=== PATIENT | female | born 1985 | race Caucasian/White ===

== ENCOUNTER 2024-07-03 12:00 | Emergency (ER) | payer OTHER, SELFPAY ==
--- NOTE | ~2024-07-03 | CT_ITS ---
CT scan of the Neck Technique: 2.5 mm axial scans were obtained through the neck after intravenous administration of 75 c c Omnipaque 350. Coronal and sagittal reconstructions of the neck were obtained. Dose reduction techn ique was used on this scan by utilizing automated exposure control and iterative reconstruction techn ique. The dose-length product (DLP) was 427.02 mGy-cm. Clinical History: Dysphagia Findings: There is mild bilateral cervical lymphadenopathy, predominantly level 2, nonspecific. Parapharyngeal spaces appear normal bilaterally. The parotid and submandibular glands appear normal. The pharyngeal mucosal spaces appear normal. No soft tissue masses are seen in the neck. The thyroid gland appears normal. Images of the lung apices reveal no abnormalities. Impression: Mild nonspecific bilateral cervical lymphadenopathy, most compatible with nonspecific lymphadenitis. Correlate clinically. Reviewed, dictated and finalized at [facility]. Impression: Mild nonspecific bilateral cervical lymphadenopathy, most compatible with nonsp ecific lymphadenitis. Correlate clinically.
[2024-07-03 12:00] VITALS: BP 140/85; PULSE 98; RESP 20; TEMP 37; O2SAT 99
[2024-07-03 12:13] VITALS: BP 140/85; PULSE 98; RESP 20; TEMP 37; O2SAT 99
--- NOTE | 2024-07-03 12:13 | ED.GENADULT ---
HPI - General Adult General Chief complaint: Upper Respiratory Infection Stated complaint: fever, sore throat Time Seen by Provider: 07/03/24 12:04 History of Present Illness HPI narrative: Karoline presented to the ED with a few days of sore throat that is getting worse. It started a few days ago and was followed by subjective fevers and body aches. She is struggling to eat and swallow pills because of the pain. Related Data Allergies Allergy/AdvReac Type Severity Reaction Status Date / Time No Known Allergies Allergy Verified 07/03/24 12:11 Review of Systems Review of Systems: All systems reviewed & are unremarkable except as noted in HPI and below Exam Const: General: cooperative, healthy appearing, comfortable, no acute distress, well developed, alert, awake and Physically active Orientation/consciousness: oriented to person, oriented to place and oriented to time HENMT: Head: normal to inspection, normocephalic and atraumatic Ears: hearing grossly normal bilaterally and external ears normal Face/Nose/Sinus: Normal external nose present Other: would not open mouth wide enough to visualize throat. Bilateral anterior cervical lymphadenopathy Eyes: General: appearance normal, both eyes and all related structures Periorbital: periorbital findings normal Sclera: sclerae normal Pupils: Equal, round and reactive pupils present Neck: Neck: normal visual inspection Chest: Chest palpation & inspection: normal inspection of the chest Resp: Effort & Inspection: normal respiratory effort, able to speak in complete sentences and no respiratory distress Auscultation: clear to auscultation bilaterally Cardio: Jugular venous distension: no JVD Rate: regular rate Rhythm: regular rhythm GI: Inspection: normal to inspection GI Palp: Yes Soft to palpation Auscultation: normal bowel sounds Skin: General skin exam: normal color and no rashes or lesions noted Neuro: General: oriented to person, oriented to place and oriented to time Cranial nerves: Yes Equal, round and reactive pupils present Extrem: General: normal to inspection Course Course Emergency Course: Ordered labs, CT, and toradol for pain. CT scan of the Neck Technique: 2.5 mm axial scans were obtained through the neck after intravenous administration of 75 cc Omnipaque 350. Coronal and sagittal reconstructions of the neck were obtained. Dose reduction technique was used on this scan by utilizing automated exposure control and iterative reconstruction technique. The dose-length product (DLP) was 427.02 mGy-cm. Clinical History: Dysphagia Findings: There is mild bilateral cervical lymphadenopathy, predominantly level 2, nonspecific. Parapharyngeal spaces appear normal bilaterally. The parotid and submandibular glands appear normal. The pharyngeal mucosal spaces appear normal. No soft tissue masses are seen in the neck. The thyroid gland appears normal. Images of the lung apices reveal no abnormalities. Impression: Mild nonspecific bilateral cervical lymphadenopathy, most compatible with nonspecific lymphadenitis. Correlate clinically. Labs showed leukocytosis, elevated CRP and was positive for Strep. She was given dexamethasone and a dose of amoxicillin Vital Signs Vital signs: Vital Signs Temperature 98.6 F 07/03/24 12:00 Pulse Rate 98 07/03/24 12:00 Respiratory Rate 20 07/03/24 12:00 Blood Pressure 140/85 07/03/24 12:00 Pulse Oximetry 99 07/03/24 12:00 Oxygen Delivery Room Air 07/03/24 12:00 Temperature 98.6 F 07/03/24 12:13 Pulse Rate 98 07/03/24 12:13 Respiratory Rate 20 07/03/24 12:13 Blood Pressure 140/85 07/03/24 12:13 Pulse Oximetry 99 07/03/24 12:13 Oxygen Delivery Room Air 07/03/24 12:13 Medical Decision Making Vital Signs Vital Signs: Vital Signs Temperature 98.6 F 07/03/24 12:00 Pulse Rate 98 07/03/24 12:00 Respiratory Rate 20 07/03/24 12:00 Blood Pressure 140/85
[2024-07-03] MEDS: KETOROLAC 15 MG/ML VIAL (*BKC) IV PUSH ×2 (12:28→13:54)
[2024-07-03 12:37] LABS: Basophils Absolute Auto 0.04 K/mm3 (0.00-0.10); Basophils Percent Auto 0.3 % (0.0-1.0); Eosinophils Absolute Auto 0.07 K/mm3 (0.02-0.50); Eosinophils Percent Auto 0.5 % (1.0-6.0); Hematocrit 42.4 % (35.0-49.0); Hemoglobin 14.8 g/dL (12.0-15.0); Immature Granulocyte Absolute 0.07 K/mm3 (0.00-0.00); Immature Granulocyte Percent A 0.5 % (0.0-0.0); Lymphocytes Absolute Auto 0.93 K/mm3 (1.10-4.50); Lymphocytes Percent Auto 6.4 % (18.0-42.0); Mean Corpuscular HGB Conc 34.9 g/dL (32-36); Mean Corpuscular Hemoglobin 31.4 pg (27.0-31.0); Mean Platelet Volume 10.8 fl (9.2-11.8); Monocytes Percent Auto 5.5 % (2.0-11.0); Neutrophils Absolute Auto 12.62 K/mm3 (1.70-7.20); Neutrophils Percent Auto 86.8 % (50.0-70.0); Platelet Count Result 244 K/mm3 (150-420); Red Blood Count 4.71 M/mm3 (4.20-5.40); Red Cell Distribution Width 11.7 % (11.6-14.4); White Blood Count 14.5 K/mm3 (4.8-10.8)
[2024-07-03 12:48] LABS: Alanine Aminotransferase 25 U/L (14-59); Albumin Level 3.1 g/dL (3.4-5.0); Alkaline Phosphatase 123 U/L (46-116); Anion Gap 10 mmol/L (4-12); Aspartate Amino Transferase 15 U/L (15-37); Bilirubin,Total 0.5 mg/dL (0.00-1.00); Blood Urea Nitrogen 4 mg/dL (7-18); Calcium 8.7 mg/dL (8.5-10.1); Carbon Dioxide 26 mmol/L (21-32); Chloride 98 mmol/L (98-108); Estimated CRCL calculation 105 ml/min; Estimated Glomerular Filt Rate > 60; Glucose 103 mg/dL (70-99); Osmolality Calculated 274 mOsm/kg (285-295); Potassium 3.7 mmol/L (3.5-5.1); Sodium 134 mmol/L (136-145); Total Protein 7.2 g/dL (6.4-8.2)
[2024-07-03 13:15] LABS: Strep Group A RT-PCR DETECTED (Negative)
[2024-07-03 13:19] LABS: SARS-CoV-2 RNA PCR Negative (Negative)
[2024-07-03 13:33] LABS: Influenza A QL RT-PCR Negative (Negative); Influenza B QL RT-PCR Negative (Negative); RSV RNA, RT-PCR Negative (Negative)
[2024-07-03] MEDS: dexAMETHasone SOD PHOS INJ 10 MG/ML 1 ML VIAL IV PUSH (13:54)
[2024-07-03] MEDS: AMOXICILLIN/CLAVULANATE K 875-125 MG TAB 1 TABLET PO (13:54)
[2024-07-03 14:05] VITALS: BP 130/88; PULSE 96; RESP 20; TEMP 37; O2SAT 98
== END 2024-07-03 14:05 | disposition home or self-care (01) ==
PROVIDERS: Emergency Provider Family Medicine; PCP Family Medicine
DX: J02.0 Streptococcal pharyngitis (principal); Z20.822 Contact with and (suspected) exposure to COVID-19
CPT/HCPCS: 36415; 70491; 80053; 85025; 86140; 87637; 87651; 96374; 96375; 96376; 99284; A9270; J1100; J1885; Q9967

== ENCOUNTER 2025-08-26 10:59 | Emergency (ER) | payer OTHER, SELFPAY ==
--- NOTE | ~2025-08-26 | XR_ITS ---
Examination: XR ankle LT min 3V, XR tibia fibula LT 2V Clinical History: Fall, Lt. ankle pain/ limited ROM Comparison: None Technique: 2 views left tibia fibula 3 films, 3 views left ankle Findings/impression: Left tibia-fibula: 1. No fracture. Left ankle: 1. No fracture or dislocation. Reviewed, dictated and finalized at location R. [employer]
[2025-08-26 11:00] VITALS: BP 134/83; PULSE 82; RESP 20; TEMP 36.9; O2SAT 99
--- OUTSIDE RECORDS SUMMARY | 2025-08-26 11:02 | XMS_ITS | Clinical Summary ---
Author Organization [facility] Medical Office Building B Address [address] [place] [address] Care Team Providers Care Supervisor Throwing Department Name Role Phone Christian Marcos MD Primary Care Provider [phone]- [phone] Allergies Active Allergy Reactions Criticality Noted Date Comments Sumatriptan Palpitations,Chest tightness,Dizziness,Flushing (skin),Nausea only,Shortness of breath,Sweating High 08/23/2014 Medications baclofen (LIORESAL) 10 mg tablet Take 1 tablet by mouth daily 01/31/[address] (VOLTAREN) 75 mg EC tablet 12/31/2020 Active sertraline (ZOLOFT) 100 mg tablet Take 100 mg by mouth daily 12/31/2020 Active traZODone (DESYREL) 50 mg tablet TK 1/2 TO 1 T PO HS PRN FOR INSOMNIA 07/20/2019 Active valACYclovir (VALTREX) 500 mg tablet Take 1,000 mg by mouth 2 (two) times a day 12/04/2020 Active folic acid (FOLVITE) 1 mg tablet Take 1 tablet (1 mg total) by mouth daily 90 tablet 3 06/19/2021 Active leflunomide (ARAVA) 10 mg tabletIndicatio ns:Rheumatoid Arthritis Take 1 tablet (10 mg total) by mouth daily 30 tablet 2 07/09/2021 Active Active Problems No known active problems Medical History Medical History Date Comments Depression Family History Medical History Relation Name Comments Cancer Brother LYMPHOBLASTIC Arthritis Father Cancer Father PANCREATIC Fibromyalgia Father Rheum arthritis Father Cancer Maternal Grandmother OATS CE LL LUNG CANCER Arthritis Mother Crohn's disease Mother Rheum arthritis Mother Cancer Mother's Sister 1 OVARIAN Cancer Mother's Sister 2 LUNG CANCE R Heart disease Paternal Grandmother Breast cancer Sister Relation Name Status Comments Brother Father Maternal Grandfather Maternal Grandmother Mother Alive Mother's Sister 1 Mother's Sister 2 Paternal Grandmother Sister Social History Tobacco Use Types Packs/Day Years Used Date Smoking Tobacco: Never Smokeless Tobacco: Never Personal Safety Answer Date Recorded Getting School Help Needed Not on file 09/09 Comments Unknown Sex and Gender Information Value Date Recorded Sex Assigned at Not on file 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 Gender Identity Female 12/05/2020 3:34 AM CDT Sexual Orientation Bisexual 12/05/2020 3: 34 AM CDT Last Filed Vital Signs Vital Sign Reading Time Taken Comments Blood Pressure 143/83 06/19/2021 12:47 PM CDT Pulse 102 06/19/2021 12:47 PM CDT Temperature 36.7 C (98 F) 06/19/2021 12:47 PM CDT Respiratory Rate - - Oxygen Saturation 99% 01/29/2021 1:19 PM CDT Inhaled Oxygen Concentration - - Weight 83.6 kg (184 lb 3.2 oz) 06/19/2021 12:47 PM CDT Height 162.6 cm (5' 4) 06/19/2021 12:47 PM CDT Body Mass Index 31.62 06/19/2021 12:47 PM CDT Plan of Treatment Not on [place] [address] [address] [place] [address] [facility] Care Teams Supervisor Throwing Department Relationship Specialty Start Date End Date Christian Marcos MD [address] [place] [address] PCP - General Family Medicine 11/30/20
--- OUTSIDE RECORDS SUMMARY | 2025-08-26 11:38 | XMS_ITS | Encounter Summary ---
Author Organization [facility] Address [address] [place] [address] Care Team Providers Care Coordinate Measuring Machine Programmer Name Role Phone Glenda Portillo MD Unavailable [phone] Christian Marcos MD Primary Care Provider Encounter Details Date Type Department Care Team (Late st Contact Info) Description 12/03/2020 [facility] Message Enc [facility] [place] [id number] Celeste Alvarez, CALENDER SUPERVISOR [address] [id number] Visit Follow Up Social History Tobacco Use Types Packs/Day Years Used Date Smoking Tobacco: Never Smokeless Tobacco: Never Alcohol Use Standard Drinks/Week Comments Yes 0 (1 standard drink = 0.6 oz pur e alcohol) Socially Comments No Sex and Gender Information Value Date Recorded Sex Assigned at Female 09/11/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 No / Unsure 12/03/2020 2:47 PM CDT documented as of this encounter Plan of Treatment Not on file documented as of this encounter Visit Diagnoses Not on filedocumented in this encounter Care Teams Coordinate Measuring Machine Programmer Relationship Specialty Start Date End Date Christian Marcos MD [address] [facility] [place] [address] PCP - General FAMILY PRACTICE 11/16/20 Carl-Glenda Telles MD [address] [place] [address] Surgeon NEUROLOGICAL SURGERY 09/11/20 documented as of this encounter
--- OUTSIDE RECORDS SUMMARY | 2025-08-26 11:38 | XMS_ITS | Clinical Summary ---
Author Organization [facility] Address [address] [place] [address] Care Team Providers Care Singer And Unloader Name Role Phone Glenda Portillo MD [facility] [phone]- [phone] Christian Bonilla MD Primary Care Provider Allergies Active Allergy Reactions Criticality Noted Date Comments Sumatriptan Chest pressure 03/14/2021 Medications No known medications Active Problems Problem Noted Date Diagnosed Date Arnold-Chiari malformation, type I 02/22/2020 Right cervical radiculopathy 04/12/2019 Chronic right shoulder pain 04/12/2019 Family History Medical History Relation Comments No Known Problems Brother No Known Problems Father No Known Problems Maternal Aunt No Known Problems Maternal Grandfather No Known Problems Maternal Grandmother No Known Problems Maternal Uncle Arthritis Mother No Known Problems Paternal Aunt No Known Problems Paternal Grandfather No Known Problems Paternal Grandmother No Known Problems Paternal Uncle Breast Cancer Sister Relation Status Comments Brother Father Maternal Aunt Maternal Grandfather Maternal Grandmother Maternal Uncle Mother Paternal Aunt Paternal Grandfather Paternal Grandmother Paternal Uncle Sister Social History Tobacco Use Types Packs/Day Years Used Date Smoking Tobacco: Never Smokeless Tobacco: Never Alcohol Use Standard Drinks/Week Comments Yes 0 (1 standard drink = 0.6 oz pur e alcohol) Socially Comments No Sex and Gender Information Value Date Recorded Sex Assigned at Female 09/11/2023 10:04 AM SPINNER HAND Legal Sex Female 8:28 PM CDT Gender Identity Female 11/27/2021 11:21 AM CDT Sexual Orientation Bisexual 11/27/2021 11 :21 AM CDT Last Filed Vital Signs Vital Sign Reading Time Taken Comments Blood Pressure 165/98 09/10/2023 10:08 AM SPINNER HAND Pulse 102 09/10/2023 10:08 AM SPINNER HAND Temperature 36.3 C (97.4 F) 09/10/2023 10:08 AM SPINNER HAND Respiratory Rate 18 09/10/2023 10:08 AM SPINNER HAND Oxygen Saturation 99% 09/10/2023 10:08 AM SPINNER HAND Inhaled Oxygen Concentration - - Weight 85.8 kg (189 lb 4 oz) 09/10/2023 10:08 AM SPINNER HAND Height 162.6 cm (5' 4) 09/10/2023 10:08 AM SPINNER HAND Body Mass Index 32.48 09/10/2023 10:08 AM SPINNER HAND Plan of Treatment Health Maintenance Due Date Last Done Comments Cervical Cancer Screening Pap Smear (Age 30 to 64) Every 3 Years 1984 Annual Physical 1987 Hepatitis C 2002 Hepatitis B Vaccines (1 of 3 - 19+ 3-dose series) 2003 HPV Vaccines (1 - 3-dose SCDM series) 2011 Cervical Cancer Screening Pap with HPV Testing (Age 30 to 64) Every 5 Years 2014 Cervical Cancer Screening with HPV 2014 COVID-19 Vaccine (2024- season) 2025 Influenza Adult (#1) 2025 12/05/2022, 07/15/2021, 06/22/2020 Mammogram Screening 03/01/2027 03/01/2025, 01/21/2024, 12/05/2022, Additional history exists DTaP, Tdap and Td Vaccines (2 - Tdap) 10/27/2030 10/27/2020, 04/23/1990, 01/17/1987, Additional history exists Hepatitis A Vaccines Aged Out No long er eligible based on patient's age to complete this topic Meningococcal B Vaccine Aged Out No l onger eligible based on patient's age to complete this topic Meningococcal Vaccine Aged Out No eliazar randy eligible based on patient's age to complete this topic Pneumococcal Vaccine: Pediatrics (0 to 5 Years) and At-Risk Patients (6 to 49 Years) Aged Out No longer eligible based on patient's age to complete this topic RSV Immunizations Under 20 Months Aged Out No longer eligible based on patient's age to complete this topic Procedures Procedure Name Priority Date/Time Associated Diagnosis Comments MG SCREENING W EBENEZER MARYJANE DIGI Routine 03/01/2025 1:54 PM CDT Screening mammogram for breast cancer from Last 3 Months or Most Recently Relevant to Health Maintenance Results * MG SCREENING W EBENEZER MARYJANE DIGI (03/01/2025 1:54 PM CDT) Anatomical Region Laterality Modality Breast Bilateral Mammography 03/01/2025 3:08 PM CDT Impressions 03/01/2025 3:09 PM CDT IMPRESSION: No suspicious change since the previous exams. Recommendation: 1: Routine Screening Bilateral in 1 Year Assessment: ACR BI-RADS 2 - BENIGN FINDING(S) Ordered By: CHRISTIAN BONILLA Interpreted By: Kyree Irby MD, 03/01/2025 3:08 PM Narrative 03/01/2025 3:09 PM [address] [place] [address] Examination: Digital screening mammogram with CAD. Clinical history: Asymptomatic patient presents for routine screening. Comparison: 01/21/2024, 12/05/2022, 12/04/2021, 11/28/2020. Technique: Bilateral digital mammograms. The exam was interpreted with the use of a computer-aided detection (CAD) system. Additional 3-D tomosynthesis images were acquired. Tissue density: The breasts are heterogeneously dense which may obscure small masses. Findings: The breast tissue is heterogeneously dense. The dense tissue may obscure some lesions mammographically. Benign-appearing calcification noted. No suspicious mass, microcalcification or area of architectural distortion can be identified. From a mammographic standpoint, routine followup in one year would seem adequate. us Christian Bonilla MD MAMMO Final Resul t from Last 3 Months or Most Recently Relevant to Health Maintenance Insurance [employer] Care Teams Singer And Unloader Relationship Specialty Start Date End Date Christian Bonilla MD [address] [facility] [place] [address] PCP - General FAMILY PRACTICE 11/16/20 Carl-Glenda Telles MD [address] [place] [address] Surgeon NEUROLOGICAL SURGERY 09/11/20
--- OUTSIDE RECORDS SUMMARY | 2025-08-26 11:39 | XMS_ITS | Patient Health Record ---
Author Organization [facility] Address [address] [place] [address] Support Name Relationship Address Phone Karoline Mabry Guarantor Unknown Reason For Referral No Information Medications Medication SIG (Take, Route, Frequency, Duration) Notes Start Date End Date Status Medrol (João) 4 MG Pack take by Oral rout e as directed on pack Oral ([facility]) 09/04/2011 Active Naproxen 500 MG take 1 tablet (500MG ) by oral route 2 times every day with food Oral ([facility]) 09/04/2011 Active traMADol HCl 50 MG take 1 tablet (50MG) by oral route every 6 hours as needed Oral ([facility]) 09/04/2011 Active Plan Of Treatment No Information
--- OUTSIDE RECORDS SUMMARY | 2025-08-26 11:39 | XMS_ITS | Encounter Summary ---
Author Organization [facility] Address [facility] [place] [address] Care Team Providers Care Fuel Verification Technician Name Role Phone Christian Marcos MD Primary Care Provider [phone] Sami Freitas MD Primary Care Provider Carl-Glenda Telles MD Unavailable +- [phone] Christian Marcos MD Primary Care Provider [phone] Encounter Details Date Type Department Care Team (Late st Contact Info) Description 02/19/2019 Abstract [facility] CONVERSION [address] [place] [address] , Generic MD Portia Social History Tobacco Use Types Packs/Day Years Used Date Smoking Tobacco: Never Assessed Comments Unknown Sex and Gender Information Value Date Recorded Sex Assigned at Female 09/11/2023 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 Legal Sex Female 8:28 PM CDT Gender Identity Female 11/27/2021 11:21 AM CDT Sexual Orientation Bisexual 11/27/2021 11 :21 AM CDT documented as of this encounter Plan of Treatment Not on file documented as of this encounter Visit Diagnoses Not on filedocumented in this encounter Care Teams Fuel Verification Technician Relationship Specialty Start Date End Date Christian Marcos MD [address] [place] [phone] PCP - General FAMILY PRACTICE 04/12/19 06/13/20 Sami Freitas MD [address] [place] [phone] PCP - General FAMILY PRACTICE 06/14/20 11/15/20 Christian Marcos MD [address] [place] [address] PCP - General FAMILY PRACTICE 11/16/20 Acakpo-Glenda Telles MD [address] [place] [address] Surgeon NEUROLOGICAL SURGERY 09/11/20 documented as of this encounter
--- OUTSIDE RECORDS SUMMARY | 2025-08-26 11:39 | XMS_ITS | Clinical Summary ---
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
--- OUTSIDE RECORDS SUMMARY | 2025-08-26 11:39 | XMS_ITS | Encounter Summary ---
Author Organization [facility] Address [facility] [place] [address] Care Team Providers Care Relay Engineer Name Role Phone Christian Marcos MD Primary Care Provider Sami Freitas MD Primary Care Provider Carl-Glenda Telles MD Unavailable +- [phone] Christian Marcos MD Primary Care Provider Encounter Details Date Type Department Care Team (Late st Contact Info) Description 11/28/2017 Abstract [facility] CONVERSION [address] [place] [address] , Guicho Pearce MD Social History Tobacco Use Types Packs/Day Years Used Date Smoking Tobacco: Never Assessed Comments Unknown Sex and Gender Information Value Date Recorded Sex Assigned at Female 09/11/2023 10:04 AM LAP CHECKER Legal Sex Female 8:28 PM CDT Gender Identity Female 11/27/2021 11:21 AM CDT Sexual Orientation Bisexual 11/27/2021 11 :21 AM CDT documented as of this encounter Plan of Treatment Not on file documented as of this encounter Visit Diagnoses Not on filedocumented in this encounter Care Teams Relay Engineer Relationship Specialty Start Date End Date Christian Mracos MD [facility] [facility] [place] [phone] PCP - General FAMILY PRACTICE 04/12/19 06/13/20 Sami Freitas MD [address] [place] [phone] PCP - General FAMILY PRACTICE 06/14/20 11/15/20 Christian Marcos MD [address] [facility] [address] [place] [address] PCP - General FAMILY PRACTICE 11/16/20 Acakpo-Glenda Telles MD [address] [place] [address] Surgeon NEUROLOGICAL SURGERY 09/11/20 documented as of this encounter
--- NOTE | 2025-08-26 11:53 | ED_ITS ---
HPI - Extremity Injury (Lower) General Chief Complaint: Extremity Injury, Lower Stated Complaint: left foot injury Source: patient and family Mode of arrival: wheelchair Limitations: no limitations History of Present Illness HPI Narrative: This is a 39-year-old female with no significant past medical history had a fall earlier this morning while in her bathtub causing injury to her left lower leg and ankle, no other injuries noted has some mild swelling and bruising otherwise no numbness or tingling has good range of motion in her in her toes and limited range of motion of her foot and ankle secondary to pain and inflammation. Otherwise no other injuries no neurological deficits. complaint: leg injury and ankle injury Onset (ago): hour(s) Place: home Related Data Allergies Allergy/AdvReac Type Severity Reaction Status Date / Time No Known Allergies Allergy Verified 07/03/24 12:11 Review of Systems Review of Systems: All systems reviewed & are unremarkable except as noted in HPI and below Exam Const: General: healthy appearing and no acute distress Nutritional Appearance: well nourished Orientation/consciousness: patient oriented x3 Limitations: no limitations Chest: Chest palpation & inspection: normal inspection of the chest Resp: Effort & Inspection: normal respiratory effort Auscultation: clear to auscultation bilaterally Cardio: Rate: regular rate Rhythm: regular rhythm GI: GI Palp: Yes Soft to palpation Auscultation: normal bowel sounds Skin: General skin exam: normal color Rashes: no rashes Other: Left lower leg and ankles mild swelling has a brisk pedal pulse on the left with mild bruising Course Course Emergency Course: Medical decision making narrative: The patient was evaluated by myself in the emergency department. History obtained from the patient is independent historian physical exam performed and witnessed by a nurse. X-rays performed showed no acute fractures Patient received 60mg of IM Toradol. Repeat assessment: Patient doing well on repeat exam with no acute distress Symptoms improved since arrival to the emergency department. Repeat vitals are stable Patient agrees with discussion and after shared medical decision-making and agrees with discharge All questions answered to the patient's satisfaction Follow-up in 3 to 5 days with primary care physician. Vital Signs Vital signs: Vital Signs Temperature 36.9 C 08/26/25 11:00 Pulse Rate 82 08/26/25 11:00 Respiratory Rate 20 08/26/25 11:00 Blood Pressure 134/83 08/26/25 11:00 Pulse Oximetry 99 08/26/25 11:00 Oxygen Delivery Room Air 08/26/25 11:00 Temperature 36.9 C 08/26/25 11:00 Pulse Rate 82 08/26/25 11:00 Respiratory Rate 20 08/26/25 11:00 Blood Pressure 134/83 08/26/25 11:00 Pulse Oximetry 99 08/26/25 11:00 Oxygen Delivery Room Air 08/26/25 11:00 MDM Differential Diagnosis Differential Diagnosis: Ankle sprain Critical Care Time Critical Care Time Critical Care Time: No Discharge Plan Discharge Clinical Impression: Ankle sprain and strain Patient Disposition: Home Condition: Stable Instructions: Antibiotic Form, Ankle Sprain (ED) Additional Instructions: Advised to continue Thom wrap can take Tylenol or Motrin as needed, take prescribed medication and follow with primary in 3 to 5 days for further ev aluation and treatment. Patient Language: [place] Prescriptions: New tramadol 50 mg tablet 50 mg PO Q6H PRN (Reason: pain) Qty: 14 0RF No Action amoxicillin 500 mg capsule 500 mg PO Q8H Qty: 30 0RF Follow-up/Referrals: Christian Marcos M.D. [Primary Care Provider, [facility]] Time of Disposition: 11:58
[2025-08-26] MEDS: KETOROLAC (*BKC) 60 MG/2 ML VIAL IM (12:06)
[2025-08-26 12:16] VITALS: BP 127/84; PULSE 70; RESP 16; O2SAT 98
== END 2025-08-26 12:18 | disposition home or self-care (01) ==
PROVIDERS: Emergency Provider Emergency Medicine; PCP Family Medicine
DX: S93.402A Sprain of unspecified ligament of left ankle, initial encounter (principal); S96.912A Strain of unspecified muscle and tendon at ankle and foot level, left foot, initial encounter; W18.2XXA Fall in (into) shower or empty bathtub, initial encounter
CPT/HCPCS: 73590; 73610; 96372; 99284; J1885